=== PATIENT | female | born 1950 | race Caucasian/White ===

== ENCOUNTER → 2018-04-12 | Outpatient (CLI) | payer MEDICARE, OTHER ==
[2015-05-11 14:44] VITALS: BP 155/77
[~2018-04-12] MED LIST: ACET500T55 PO; ALBU2.5V5 NEB; ATEN50TA PO; BUDE0.5A NEB; IPRA3AMP29 NEB; LEVO500T59 PO; LISI1TAB5 PO; PRAV40TA2 PO; PRED-220 PO; Prednisone; SODI14.1 NS
--- NOTE | 2018-04-12 13:06 | KCIC ---
Two-view chest 04/12/2018 CLINICAL INDICATION: Hemoptysis, fatigue. COMPARISON: CT chest 05/09/2015 FINDINGS: Cardiac and mediastinal silhouettes are unremarkable. No pleural effusion, pneumothorax or focal consolidation. There is a tiny calcified granuloma in the right lung base. IMPRESSION: No acute cardiopulmonary abnormality. Electronically signed by: Des Irby MD (04/12/2018 1:01 PM) [facility]
== END | disposition home or self-care (01) ==
LOC: KCIC 09:44
PROVIDERS: ATTEND Family Medicine
DX: R04.2 Hemoptysis (principal); R91.8 Other nonspecific abnormal finding of lung field
CPT/HCPCS: 71046